=== PATIENT | male | born 1950 | race Caucasian/White ===

== ENCOUNTER 2018-10-16 18:45 | Inpatient (IN) | payer MEDICARE ==
[~2018-10-16] VITALS: Ht 181.6 cm; Wt 72.3 kg
[2018-10-16] MEDS ORDERED: methylPREDNISolone SOD SUCC 125 MG/2 ML ONE (19:11)
[2018-10-16] MEDS ORDERED: ALBUTEROL SULFATE 2.5 MG/3 ML ONE (19:12)
[2018-10-16] MEDS ORDERED: ALBU18HF INH (19:19)
[2018-10-16] MEDS ORDERED: IBUP-1484 PO (19:19)
[2018-10-16] MEDS ORDERED: ASPI-650 PO (19:19)
[2018-10-16] MEDS ORDERED: SYMBICORT INH (19:19)
[2018-10-16] MEDS ORDERED: ALBUTEROL SULFATE 2.5 MG/3 ML NPPB ONE (19:30)
[2018-10-16] MEDS ORDERED: methylPREDNISolone SOD SUCC 125 MG/2 ML IVP ONE (19:30)
[2018-10-16 19:35] LABS: MEAN CORPUSCULAR HEMOGLOBIN 31.6 pg (27.5-34.5); MEAN CORPUSCULAR HGB CONC 33.9 g/dL (33.2-36.2); MEAN PLATELET VOLUME 7.8 fL (7.4-10.4); PLATELET COUNT 358 x10^3/uL (130-400); RED BLOOD COUNT 4.51 x10^6/uL (4.38-5.82); RED CELL DISTRIBUTION WIDTH 13.5 % (9.4-14.8)
[2018-10-16 19:44] LABS: ALANINE AMINOTRANSFERASE 23 U/L (12-78); ALBUMIN 2.7 g/dL (3.4-5.0); ANION GAP 9 mmol/L (5-15); CALCIUM 8.5 mg/dL (8.5-10.1); CHLORIDE 105 mmol/L (98-107); CREATININE 0.71 mg/dL (0.7-1.3)
[2018-10-16 19:48] LABS: ALKALINE PHOSPHATASE 79 U/L (45-117); TOTAL PROTEIN 8.1 g/dL (6.4-8.2); TROPONIN I < 0.015 ng/mL (0.000-0.045)
[2018-10-16 19:54] LABS: MD YES
[2018-10-16 20:37] LABS: <PLATELET ESTIMATE> ADEQUATE; <PLT MORPHOLOGY> NORMAL PLT MORPH; <RBC MORPHOLOGY> NORMAL; BANDS%(MANUAL) 2 % (0-7); EOS% (MANUAL) 1 % (1-7); LYMPHS% (MANUAL) 8 % (22-44); MONOS% (MANUAL) 4 % (2-9); SEGS% (MANUAL) 85 % (42-75)
[2018-10-16] MEDS ORDERED: CEFTRIAXONE PMX 1GM/50ML 50 ML ONE (20:57)
[2018-10-16] MEDS ORDERED: SODIUM CHLORIDE 0.9% 1,000ML IVBOLUS ONE (21:00)
[2018-10-16] MEDS ORDERED: AZITHROMYCIN 500 MG in SODIUM CHLORIDE 0.9% 250 ML IV ONE (21:00)
[2018-10-16] MEDS ORDERED: CEFTRIAXONE 1,000 MG in SODIUM CHLORIDE 0.9% 50 ML IVPB ONE (21:00)
[2018-10-16] MEDS ORDERED: CEFTRIAXONE PMX 1GM/50ML 50 ML IVPB ONE (21:00)
[2018-10-16] MEDS ORDERED: IPRA12.9 INH (21:08)
[2018-10-16] MEDS ORDERED: SODIUM CHLORIDE 0.9% 1,000 ML IV SCH (21:08)
[2018-10-16] MEDS ORDERED: ONDANSETRON ODT 4 MG PO PRN (21:30)
[2018-10-16] MEDS: methylPREDNISolone SOD SUCC 125 MG/2 ML IVPush SCH (21:30)
[2018-10-16] MEDS ORDERED: ONDANSETRON 2MG/ML, 2ML IVPush PRN ×2 (21:30)
[2018-10-16] MEDS ORDERED: hydrALAzine 20 MG/ML, 1ML IVPush PRN (21:30)
[2018-10-16] MEDS ORDERED: ACETAMINOPHEN 500 MG TABLET PO PRN (21:30)
[2018-10-16] MEDS ORDERED: ZOLPIDEM 5MG TABLET PO PRN (21:30)
[2018-10-16] MEDS ORDERED: POLYETHYLENE GLYCOL 17 GM PACKET PO PRN (21:30)
[2018-10-16] MEDS ORDERED: GUAIFENESIN/DM 200-20MG, 10ML UDC PO PRN (21:30)
[2018-10-16] MEDS ORDERED: IBUPROFEN 200 MG TABLET PO PRN (21:30)
[2018-10-16 22:19] VITALS: BP 115/62
[2018-10-16] MEDS: ENOXAPARIN 40 MG/0.4 ML SQ SCH (22:49)
[2018-10-17 01:06] VITALS: BP 112/68
[2018-10-17] MEDS: GUAIFENESIN/COD200MG-20MG/10ML LIQUID PO PRN (01:32)
[2018-10-17] MEDS: methylPREDNISolone SOD SUCC 125 MG/2 ML IVPush SCH ×2 (03:34→17:28)
[2018-10-17 05:15] LABS: ANION GAP 5 mmol/L (5-15); CALCIUM 8.2 mg/dL (8.5-10.1); CHLORIDE 110 mmol/L (98-107); CREATININE 0.63 mg/dL (0.7-1.3)
[2018-10-17 05:24] LABS: TROPONIN I < 0.015 ng/mL (0.000-0.045)
[2018-10-17 05:27] LABS: MEAN CORPUSCULAR HEMOGLOBIN 31.4 pg (27.5-34.5); MEAN CORPUSCULAR HGB CONC 33.3 g/dL (33.2-36.2); MEAN CORPUSCULAR VOLUME 94.3 fL (81-97); MEAN PLATELET VOLUME 7.9 fL (7.4-10.4); PLATELET COUNT 304 x10^3/uL (130-400); RED BLOOD COUNT 3.94 x10^6/uL (4.38-5.82); RED CELL DISTRIBUTION WIDTH 13.1 % (9.4-14.8)
[2018-10-17] MEDS: ASPIRIN 325 MG TABLET EC PO SCH (05:46)
[2018-10-17 06:00] LABS: BASOPHILS % (AUTO) 0 % (0-1); EOSINOPHILS % (AUTO) 0 % (1-7); LYMPHOCYTES % (AUTO) 3 % (22-44); MD SCAN; MONOCYTES # (AUTO) 0.09 x10^3/uL (0.2-0.8); MONOCYTES % (AUTO) 1 % (2-9); NEUTROPHILS # (AUTO) 13.32 x10^3/uL (1.8-6.8); NEUTROPHILS % (AUTO) 96 % (42-75)
[2018-10-17 07:10] VITALS: BP 127/74
[2018-10-17] MEDS: ALBUTEROL SULFATE 2.5 MG/3 ML NPPB SCH ×2 (07:50→11:40)
[2018-10-17] MEDS: DOXYCYCLINE 100MG TABLET PO SCH ×2 (10:29→20:39)
[2018-10-17 13:16] VITALS: BP 123/68
[2018-10-17] MEDS: ALBUTEROL/IPRATROPIUM 2.5MG/0.5MG, 3 ML NPPB SCH ×2 (19:59→20:55)
[2018-10-17 20:28] VITALS: BP 136/82
[2018-10-17] MEDS: ENOXAPARIN 40 MG/0.4 ML SQ SCH (20:39)
[2018-10-17 22:08] LABS: RAPID INFLUENZA A Negative (Negative); RAPID INFLUENZA B Negative (Negative)
[2018-10-18 03:00] VITALS: BP 98/57
[2018-10-18] MEDS: methylPREDNISolone SOD SUCC 125 MG/2 ML IVPush SCH ×2 (03:41→16:27)
[2018-10-18] MEDS: ASPIRIN 325 MG TABLET EC PO SCH (05:25)
[2018-10-18] MEDS: ALBUTEROL/IPRATROPIUM 2.5MG/0.5MG, 3 ML NPPB SCH ×4 (07:00→19:21)
[2018-10-18 08:31] VITALS: BP 115/78
[2018-10-18] MEDS: DOXYCYCLINE 100MG TABLET PO SCH ×2 (09:16→20:26)
[2018-10-18] MEDS: GUAIFENESIN/COD200MG-20MG/10ML LIQUID PO PRN (09:16)
[2018-10-18 14:50] VITALS: BP 118/63
[2018-10-18 19:58] VITALS: BP 128/60
[2018-10-18] MEDS: ENOXAPARIN 40 MG/0.4 ML SQ SCH (20:26)
[2018-10-19 02:06] VITALS: BP 134/73
[2018-10-19] MEDS: ASPIRIN 325 MG TABLET EC PO SCH (05:25)
[2018-10-19] MEDS: ALBUTEROL/IPRATROPIUM 2.5MG/0.5MG, 3 ML NPPB SCH ×4 (07:18→18:50)
[2018-10-19 07:40] VITALS: BP 121/61
[2018-10-19] MEDS: DOXYCYCLINE 100MG TABLET PO SCH ×2 (09:44→21:15)
[2018-10-19] MEDS: CEFTRIAXONE PMX 1GM/50ML 50 ML IV SCH (11:26)
[2018-10-19 14:09] VITALS: BP 130/61
[2018-10-19 20:00] VITALS: BP 130/71
[2018-10-19] MEDS: ENOXAPARIN 40 MG/0.4 ML SQ SCH (21:15)
[2018-10-20 01:10] VITALS: BP 133/73
[2018-10-20] MEDS: ASPIRIN 325 MG TABLET EC PO SCH (05:35)
[2018-10-20] MEDS: ALBUTEROL/IPRATROPIUM 2.5MG/0.5MG, 3 ML NPPB SCH ×2 (06:38→11:15)
[2018-10-20 07:03] VITALS: BP 122/22
[2018-10-20] MEDS: DOXYCYCLINE 100MG TABLET PO SCH (08:58)
[2018-10-20] MEDS: CEFTRIAXONE PMX 1GM/50ML 50 ML IV SCH (10:38)
[2018-10-20] MEDS ORDERED: DOXY100T PO (11:00)
[2018-10-20] MEDS ORDERED: PRED20TA PO (11:00)
[2018-10-20] MEDS ORDERED: [UNRECOGNIZED DRUG - CODE] PO (11:00)
[2018-10-20] MEDS ORDERED: CEFD300C37 PO (11:00)
== END 2018-10-20 14:41 | disposition home or self-care (01) | DRG 193 ==
LOC: ED 19:35 → SUATTDRO 21:04 → EDIP 21:15 → 4WST 21:48 → DCLOUNGE 10-20 14:35
PROVIDERS: ADMIT Hospitalist; ATTEND Hospitalist
DX: J18.9 Pneumonia, unspecified organism (principal); J96.21 Acute and chronic respiratory failure with hypoxia; E43 Unspecified severe protein-calorie malnutrition; R65.11 Systemic inflammatory response syndrome (SIRS) of non-infectious origin with acute organ dysfunction; J44.1 Chronic obstructive pulmonary disease with (acute) exacerbation; J44.0 Chronic obstructive pulmonary disease with (acute) lower respiratory infection; F17.210 Nicotine dependence, cigarettes, uncomplicated; M19.90 Unspecified osteoarthritis, unspecified site; Z68.21 Body mass index [BMI] 21.0-21.9, adult; Z23 Encounter for immunization; Z71.6 Tobacco abuse counseling; Z59.0 Homelessness
CPT/HCPCS: 36415; 71045; 71250; 80048; 80053; 83605; 83735; 83880; 84100; 84145; 84484; 85025; 87040; 87400; 90656; 93005; 93306; 94640; 96365; G0378; J0696; J1650; J7613; J7620; J2930; J7030; J7512

== ENCOUNTER 2019-08-28 14:00 | Outpatient (CLI) | payer MEDICARE ==
[~2019-08-28 14:00] MED LIST: ALBU18HF INH; ASPI-650 PO; CEFD300C37 PO; DOXY100T PO; IBUP-1902 PO; IPRA12.9 INH; PRED20TA PO; SYMBICORT INH; [UNRECOGNIZED DRUG - CODE] PO
[2019-09-09] MEDS ORDERED: SIMV20TA3 PO (13:21)
[2019-09-09] MEDS ORDERED: DIPH25TA65 PO (13:58)
[2019-09-09] MEDS ORDERED: MONT10TA9 PO (14:12)
[2019-09-09] MEDS ORDERED: albuterol INH (14:12)
[2019-09-09] MEDS ORDERED: aspirin PO (14:18)
[2019-09-09] MEDS ORDERED: ibuprofen PO (14:18)
[2019-09-09] MEDS ORDERED: atrovent INH (14:18)
[2019-09-09] MEDS ORDERED: symbicort INH (14:22)
== END 2019-08-28 23:59 | disposition home or self-care (01) ==
LOC: RAD 14:00
PROVIDERS: ATTEND Nurse Practitioner Family
DX: Z02.9 Encounter for administrative examinations, unspecified (principal)

== ENCOUNTER → 2019-09-09 | Outpatient (CLI) | payer MEDICARE ==
[~2019-09-09] MED LIST changes: +DIPH25TA65 PO; +MONT10TA9 PO; +SIMV20TA3 PO; +albuterol INH; +aspirin PO; +atrovent INH; +ibuprofen PO; +symbicort INH
== END | disposition home or self-care (01) ==
LOC: STAR 12:47
PROVIDERS: ATTEND Surgery
DX: Z01.812 Encounter for preprocedural laboratory examination (principal); K40.90 Unilateral inguinal hernia, without obstruction or gangrene, not specified as recurrent; J98.11 Atelectasis; J84.10 Pulmonary fibrosis, unspecified; Z80.9 Family history of malignant neoplasm, unspecified; Z82.5 Family history of asthma and other chronic lower respiratory diseases; Z81.4 Family history of other substance abuse and dependence; J44.9 Chronic obstructive pulmonary disease, unspecified
CPT/HCPCS: 71046; 93005

== ENCOUNTER 2019-09-16 08:01 | Day surgery (SDC) | payer MEDICARE ==
[~2019-09-16] VITALS: Ht 182.9 cm; Wt 71.2 kg
[2019-09-16 08:45] VITALS: BP 142/74
[2019-09-16] MEDS ORDERED: LACTATED RINGERS 1,000 ML IV SCH ×2 (08:47→12:10)
[2019-09-16] MEDS ORDERED: ACETAMINOPHEN 500 MG TABLET PO ONE (09:00)
[2019-09-16] MEDS ORDERED: GABAPENTIN 300 MG CAPSULE PO ONE (09:00)
[2019-09-16] MEDS ORDERED: MIDAZOLAM 1 MG/ML, 2ML ONE (09:52)
[2019-09-16] MEDS ORDERED: FENTANYL PF 250 MCG/5ML ONE (09:52)
[2019-09-16] MEDS ORDERED: EPINEPHRINE 1 MG/ML, 1ML ONE ×2 (10:30→10:39)
[2019-09-16] MEDS ORDERED: BUPIVACAINE/PF 0.5% ONE ×2 (10:30→10:39)
[2019-09-16] MEDS ORDERED: PHENYLEPHRINE 10 MG/ML ONE (10:42)
[2019-09-16] MEDS ORDERED: CEFAZOLIN 1,000 MG ONE (11:28)
[2019-09-16] MEDS ORDERED: DEXAMETHASONE 4 MG/ML, 1ML ONE (11:28)
[2019-09-16] MEDS ORDERED: PROPOFOL 10 MG/ML, 20ML ONE (11:28)
[2019-09-16] MEDS ORDERED: KETOROLAC 30 MG/1 ML ONE ×2 (11:28→12:42)
[2019-09-16] MEDS ORDERED: ONDANSETRON 2MG/ML, 2ML ONE (11:28)
[2019-09-16] MEDS ORDERED: MIDAZOLAM 1 MG/ML, 2ML IV PRN (11:30)
[2019-09-16] MEDS ORDERED: FENTANYL PF 100 MCG/2ML IV PRN (11:30)
[2019-09-16] MEDS ORDERED: OXYcodone 5 MG/5 ML ORAL.SOL UDC PO PRN (11:30)
[2019-09-16] MEDS ORDERED: PROMETHAZINE 25 MG/ML, 1ML IV PRN (11:30)
[2019-09-16] MEDS ORDERED: MEPERIDINE/PF 25MG/ML,1ML IVPush PRN (11:30)
[2019-09-16] MEDS ORDERED: HYDROmorphone 2 MG/ML, 1ML IVPush PRN (11:30)
[2019-09-16] MEDS ORDERED: hydrALAzine 20 MG/ML, 1ML IV PRN (11:30)
[2019-09-16] MEDS ORDERED: ALBUTEROL/IPRATROPIUM 2.5MG/0.5MG, 3 ML NPPB PRN (11:30)
[2019-09-16] MEDS ORDERED: ALBUTEROL/IPRATROPIUM 2.5MG/0.5MG, 3 ML ONE (12:10)
[2019-09-16] MEDS ORDERED: PROMETHAZINE 25 MG/ML, 1ML IM PRN (12:30)
[2019-09-16] MEDS ORDERED: ONDANSETRON 2MG/ML, 2ML IVPush PRN (12:30)
[2019-09-16] MEDS ORDERED: morphine SULFATE 10 MG/ML, 1ML IVPush PRN (12:30)
[2019-09-16] MEDS ORDERED: LIDOCAINE-MPF 2% ,5ML ONE (12:49)
== END 2019-09-16 18:40 | disposition home or self-care (01) ==
LOC: OUT 08:01
PROVIDERS: ATTEND Surgery
DX: K40.30 Unilateral inguinal hernia, with obstruction, without gangrene, not specified as recurrent (principal); J44.9 Chronic obstructive pulmonary disease, unspecified; Z79.899 Other long term (current) drug therapy; Z98.890 Other specified postprocedural states
CPT/HCPCS: 49507; 88302; 94640; C1781; J0171; J0690; J1100; J1885; J2250; J2370; J2405; J2704; J3010; J7120; J7620